=== PATIENT | male | born 1960 | race Caucasian/White ===

== ENCOUNTER 2021-02-21 12:13 | Outpatient (CLI) | payer OTHER, SELFPAY ==
[2021-02-21 12:58] VITALS: BMI 29.9
--- NOTE | 2021-02-21 13:01 | ECG_ITS ---
[facility] Test Date: 2021-02-21 Pat Name: Cruz Wells Department: Room: Gender: Male Systems Designer: : 1960 Requested By: Madison Yanez Order Number: [id number] oJann MD: Ivonne Mcbride M.D. Interpretive Statements NAME OF STUDY: TREADMILL STRESS TEST INDICATION: Chest Pain Baseline blood pressure of 132/88 mm Hg, heart rate of 89 beats per minute and oxygen saturation 94%. EKG showed normal sinus rhythm, normal axis with normal ST-Ts. The patient exercised for 7 minutes 25 seconds on a standard Gagandeep protocol. Patient attained a maximum heart rate of 144 beats per minute(89% of the maximum predicted heart rate) with a blood pressure at the peak exercise of 190/86 mm Hg and oxygen saturation 96%. The EKG at the peak exercise revealed sinus tachycardia with no significant ST-T wave changes. Patient did not have any chest pain or any significant arrhythmis with the exercise During the recovery phase, there were no new changes. Blood pressure at the end of the recovery phase was 133/92 mm Hg with a heart rate of 91 beats per minute oxygen saturation 96%. CONCLUSION: 1. Normal EKG response to treadmill exercise. 2. No exercise-induced chest pain or cardiac arrhythmia 3. Excellent exercise tolerance, attained a maximum of 10.2 METs. Maximum VO2 of 35.7 mL/kg/min. 4. Baseline normal blood pressure with normal response to exercise. Electronically Signed On 03-01-2021 12:05:25 CDT by Ivonne Mcbride M.D. [id number]
[2021-02-21 13:34] VITALS: BP 133/92; PULSE 92
== END 2021-02-21 12:14 | disposition home or self-care (01) ==
LOC: CDL 12:15
PROVIDERS: Visit Provider Nurse Practitioner Family
DX: R07.9 Chest pain, unspecified (principal)
CPT/HCPCS: 93017

== ENCOUNTER → 2021-04-12 15:36 | Outpatient (BNVA) | payer OTHER, SELFPAY | PROVIDERS: Referring Provider Nurse Practitioner Family; Visit Provider Specialist | DX: M25.512 Pain in left shoulder (principal) | CPT/HCPCS: 73030 ==

== ENCOUNTER 2022-02-13 06:00 | Outpatient (RCR) | payer OTHER, SELFPAY | END 2022-03-10 23:59 | disposition home or self-care (01) | LOC: WPT 06:00 | PROVIDERS: Referring Provider Nurse Practitioner Family; Visit Provider Nurse Practitioner Family | DX: M25.512 Pain in left shoulder (principal) | CPT/HCPCS: 97110; 97140; 97161; 97530 ==

== ENCOUNTER 2022-03-11 06:00 | Outpatient (RCR) | payer OTHER, SELFPAY | END 2022-03-28 23:00 | disposition home or self-care (01) | LOC: WPT 06:00 | PROVIDERS: Referring Provider Nurse Practitioner Family; Visit Provider Nurse Practitioner Family | DX: M25.512 Pain in left shoulder (principal) | CPT/HCPCS: 97110; 97530 ==

== ENCOUNTER 2022-03-15 11:10 | Oncology outpatient (recurring) (ONCR) | payer OTHER, SELFPAY ==
[2022-03-15 12:18] LABS: Basophils % 0.5 %; Eosinophils # 0.1 10^3/uL (0.0-0.8); Eosinophils % 1.1 %; Hematocrit 47.8 % (42.0-52.0); Hemoglobin 15.5 g/dL (11.7-16.6); Lymphocytes % 16.8 %; Mean Corpuscular HGB Conc 32.4 g/dL (30.0-36.0); Mean Corpuscular Volume 92.5 fl (80-94); Mean Platelet Volume 11.4 fL (7.4-10.4); Monocytes # 0.5 10^3/uL (0.2-0.9); Monocytes % 8.6 %; Neutrophils # 4.15 10^3/uL (1.8-7.7); Neutrophils % 72.6 %; Nucleated Red Blood Cells % 0 %; Platelet Count 167 10^3/cmm (130-400); Red Blood Count 5.17 10^6/uL (4.1-5.3); Red Cell Distribution Width 12.2 % (12.1-15.1); White Blood Count 5.7 10^3/uL (4.0-10.0)
[2022-03-15 12:35] LABS: Alanine Aminotransferase 29 U/L (0-41); Albumin Level 4.1 g/dL (3.5-5.2); Alkaline Phosphatase 64 IU/L (40-130); Anion Gap 14.4 (5-19); Aspartate Amino Transferase 23 U/L (0-40); Blood Urea Nitrogen 14 mg/dL (8-23); Calcium 10.6 mg/dL (8.5-10.5); Carbon Dioxide 26 mmol/L (22-29); Chloride 103 mmol/L (98-107); Glucose 106 mg/dL (65-115); Osmolality Calculated 289 mOsm/kg (285-295); Potassium 4.4 mmol/L (3.5-5.1); Sodium 139 mmol/L (136-145); Total Bilirubin 0.3 mg/dL (0.15-1.2); Total Protein 7.1 g/dL (6.6-8.7)
== END 2022-04-10 23:59 | disposition home or self-care (01) ==
PROVIDERS: Visit Provider Internal Medicine Hematology & Oncology
DX: D69.6 Thrombocytopenia, unspecified (principal); E83.52 Hypercalcemia; Z79.899 Other long term (current) drug therapy; Z53.9 Procedure and treatment not carried out, unspecified reason
CPT/HCPCS: 80053; 85025

== ENCOUNTER → 2022-05-11 08:40 | Outpatient (BNVA) | payer OTHER, SELFPAY | PROVIDERS: PCP Nurse Practitioner Family; Visit Provider Urology | DX: N20.0 Calculus of kidney (principal); N28.89 Other specified disorders of kidney and ureter | CPT/HCPCS: 81003 ==

== ENCOUNTER → 2023-06-27 13:07 | Outpatient (BNVA) | payer BC, MEDICAID, SELFPAY | PROVIDERS: PCP Nurse Practitioner Family; Referring Provider Nurse Practitioner Family; Visit Provider Internal Medicine Cardiovascular Disease | DX: R07.9 Chest pain, unspecified (principal) | CPT/HCPCS: 93005 ==

== ENCOUNTER 2023-07-05 08:12 | Outpatient (CLI) | payer BC, MEDICAID, SELFPAY ==
--- NOTE | 2023-07-05 | ECG_ITS ---
[facility] Test Date: 2023-07-05 Pat Name: Cruz Wells Department: Room: Gender: Male Estimating Engineer: : 1960 Requested By: Lionel Cueto Order Number: [id number] Joann MD: Ivonne Mcbride M.D. Interpretive Statements NAME OF STUDY: LEXISCAN SESTAMIBI STRESS TEST INDICATION: Chest Pain; Shortness of Breath PROCEDURE: At the baseline, the blood pressure was 132/85 mmHg with a heart rate of 62 beats per min. The electrocardiogram showed sinus rhythm, normal axis with nonspecific T wave inversion in lead III. The Lexiscan was infused over a period of 20 seconds. A total of 0.4 milligrams of Lexiscan was infused. The stress phase was continued for a total of 5 minutes. Heart rate at the end of the stress phase was 77 beats/min with a blood pressure of 126 over 86 mm of Hg. The EKG at the peak infusion revealed no significant ST-T wave changes. Sestamibi was injected 20 seconds after the Lexiscan infusion. Blood pressure at the end of the recovery phase was 131 over 77 mmHg with a heart rate of 79 beats per minute. CONCLUSION: 1. No significant EKG changes with the LexiScan infusion. 2. No LexiScan induced chest pain or cardiac arrhythmia. 3. Normal blood pressure and heart rate response. 4. Sestamibi/sestamibi perfusion scan pending; see separate report. Electronically Signed On 07-08-2023 16:41:47 CDT by Ivonne Mcbride M.D. [id number]
--- NOTE | 2023-07-05 08:48 | NMCV_ITS ---
NM richa perf SPECT r/s* [id number] Cruz Wells Age: 63 Gender: M : 1960 Exam Date: 07/05/2023 09:57 Ordering Phys: Lionel Cueto MD ([email or web address]) Technologist: LUANN Pickard Exam Location: [facility] Indications: CHEST PAIN STRESS TEST Please see separate stress test report in [facility] for full findings IMAGE PROTOCOL Rest/Stress 1 Lexiscan Day Radiopharmaceutical Dose (mCi) Administration Site Administered by Rest: Tc-99m 10.6 IV Albert Echavarria, KIER BOILER Sestamibi Stress:Tc-99m 32.6 IV Albert Echavarria, KIER BOILER Sestamibi Rest: 05-Jul-2023 60 Discovery 630 Stress: 05-Jul-2023 30 Discovery 630 0.4mg Lexiscan. Supine position only as patient was unable to lay prone. SPECT RESULTS Technical Quality: Excellent Raw Data Analysis: Normal Image Corrections: No attenuation or motion correction applied Summed Stress Score: 5 Summed Rest Score: 7 Summed Difference Score: 0 PERFUSION FINDINGS Moderate area of moderately decreased tracer uptake involving the basal, mid and apical inferior, mid inferolateral segments with no significant reversibility. FUNCTIONAL RESULTS (calculated via Gated SPECT) Stress Image LV EF (%): 59 Stress EDV (mL):95 TID: 1.43 Stress ESV (mL):39 FUNCTIONAL FINDINGS: Segmental wall motion analysis revealing no gross wall motion abnormalities IMPRESSIONS 1. Myocardial perfusion imaging revealing moderate area of persistent decreased tracer uptake involving the inferior and inferolateral regions suggesting myocardial scarring versus attrition artifact 2. Normal LV ejection fraction of 59%. 3. LV wall motion analysis revealing no gross wall motion abnormalities. 4. Normal LV volume Elevated transient ischemic dilatation ratio 1.43 may suggest endocardial ischemia. However the positive predictive value of this finding is limited. Clinical correlation is recommended. No similar previous studies are available for comparison Dr Asael Scott MD FAC (Electronically Signed) Final Date: 05 July 2023 16:29 S
[2023-07-05 09:33] VITALS: BMI 29.0
[2023-07-05] MEDS: regadenoson 0.4 Mg/5 ml Syringe IVP (10:35)
[2023-07-05 11:01] VITALS: BP 131/77; PULSE 78
== END 2023-07-05 08:13 | disposition home or self-care (01) ==
LOC: CDL 08:15
PROVIDERS: PCP Nurse Practitioner Family; Visit Provider Internal Medicine Cardiovascular Disease
DX: R07.9 Chest pain, unspecified (principal)
CPT/HCPCS: 36415; 78452; 93017; 96374; A9500; J2785

== ENCOUNTER → 2023-08-08 08:05 | Outpatient (BNVA) | payer BC, MEDICAID, SELFPAY | PROVIDERS: PCP Nurse Practitioner Family; Visit Provider Internal Medicine Cardiovascular Disease | DX: I10 Essential (primary) hypertension (principal); R07.9 Chest pain, unspecified | CPT/HCPCS: 80048; 85025; 85610 ==

== ENCOUNTER 2023-08-12 05:25 | Outpatient (CLI) | payer BC, MEDICAID, SELFPAY ==
[2023-08-12] VITALS (16 sets, daily range): BP systolic 102–145; BP diastolic 56–97; PULSE 57–76; RESP 6–20; TEMP 36.6; O2SAT 95–99; BMI 29.0
[2023-08-12] MEDS: diphenhydrAMINE 50 mg Capsule PO (06:45)
[2023-08-12] MEDS: aspirin 325 mg Tablet PO (06:45)
--- NOTE | 2023-08-12 07:30 | XACV_ITS ---
Ht: 185 cm Wt: 100 kg BSA: 2.29 m2 Gender: Male : 1960 Any Known Allergies: Other Exam Priority: Routine Indication(s): - Chest Pain in spite of Medical Tx - Abnormal stress perfusion study Procedure(s): Procedure Description: Diagnostic procedure Procedure Description: Left Heart Catheterization Procedure Description: Left ventriculography Procedure Description: Coronary Angiography Nory ERNST; Diagnostic Cath Status: Elective Diagnostic Findings * Atypical constant chest pain with normal coronary arteries and mildly abnormal stress testing. Despite medical therapy and abnormal stress test patient continues to have chest pain. Angiography recommended. Procedure was completed via the right radial artery. * Coronary angiography reveals right coronary artery dominance. The left main bifurcates into the LAD and circumflex. The left main, LAD and circumflex are normal. The right coronary artery is the dominant vessel. There are no obstructions. Conclusions 1. Normal coronary arteries. Normal left ventriculography. Recommendations * None. Interventional RX Recommendation: none Diagnostic RX Recommendation: none Anticoagulation: Heparin Ventriculography Ejection Fraction: 60.0 % Pressures Phase:Rest AO : / ( 0 ) @ 9:18:00 AM 101 / 80 ( 82 ) @ 9:27:00 AM 93 / 74 ( 83 ) @ 9:28:00 AM 120 / 75 ( 97 ) @ 9:36:00 AM 121 / 76 ( 97 ) @ 9:36:00 AM LV : 136 / -4 / 15 @ 9:34:00 AM 124 / -5 / 11 @ 9:36:00 AM 128 / -5 / 11 @ 9:36:00 AM Valves Phase:DefaultPhase AV : 4.0 @ 8:45:10 AM AV Mean Gradient: 17.0 @ 8:45:10 AM Clinical Evaluation EBL: 5mL-10mL Procedural Details Procedure Consent Obtained. Admit Source: Out Patient. Current Diagnosis : Chest Pain. Pre-Procedure Time Out. Identified patient by full name and date of as verbalized by the patient/guarantor. Does the consent match the physician's order: Yes. Accurate & Complete Informed Consent: Yes. Inpatient/Outpatient History & Physical on Chart: Yes. If H&P is completed, is and addenduem needed: No; If yes, is the addendum complete: N/A. Visualize and Verify Site with Patient/Guarantor: N/A. Relevant Radiology Images available: N/A. The risks, benefits, and alternatives of sedation and/or procedure were discussed by physician. The patient agrees to continue. Procedure started. [facility] Clinical Fraility Score: 3: Managing Well. Chest Pain Symptom Assessment: Atypical Angina. Cardiovascular Instability: No, stable. Correct patient, site and procedure confirmed by cath team. Current diagnosis: Chest Pain. PERRLA. Strong, equal hand traffic coordinator bilaterally. Lungs clear x 5 lobes. IV Site on Arrival: 20 gauge in the right anticubital. IV Fluids: 0.9% NaCl at KVO. 0 mL infused prior to section laborer. Pre Procedural Pulses: bilateral dorsalis pedis was 3+. Pre Procedural Pulses: bilateral posterior tibial was 3+. Pre Procedural Pulses: bilateral radial was 3+. Oxygen started at 3liters/min via nasal canula. bilateral groins was prepped with chloroprep then draped in the usual sterile fashion. right radial was prepped with chloroprep then draped in the usual sterile fashion. Physician notified. Baseline sample Acquired. HR: 52 BPM. Family updated by MD prior to the start of the procedure. Physician arrived. Physician scrubbed in. Immediate Pre-Procedure Time Out. Correct Patient: Yes; Correct Procedure: Yes; Correct Site: Yes; Correct Patient Position: Yes; Correct Supplies: Yes; Dried Flammable Prep: Yes; Blood Products Available: N/A;. Lidocaine 1% infiltrated to the right radial. Arterial access obtained. A 5 macedonian TIG catheter in over wire. Multiple views taken of left coronary artery. Catheter redirected to the RCA. Multiple views taken of right coronary artery. Catheter removed over the wire. A 5 macedonian Angled Pig catheter in over wire. EDP Sample taken: LV 136/-5,15; HR: 67 BPM; SpO2: 99%. LV gram performed in APONTE @ 10 mL/second for a total of 30 mL. Patient EF: Normal. EDP Sample taken: LV 124/-6,11; HR: 67 BPM; SpO2: 98%. Pullback taken: LV 128/-6,11; AO 120/75(97); Mean: 17mmHg, Peak to Peak: 4mmHg, SEP: 6sec/min; HR: 64 BPM; SpO2: 98%. Physician review of films. Physician scrubbed out. A TR Band was successful obtaining hemostatsis at the Right Radial artery insertion site. TR band placed. Hemostasis obtained. Post Procedure: Pulses reassessed and unchanged. PERRLA. Strong, equal hand traffic coordinator bilaterally. No VTE prophylaxis required. Medication waste: Lidocaine- 2 ml, Nitro- 49.8 mg, Heparin- 1000 units, Versed- 1 mg, Fentanyl- 75 mcg. Total IV fluids: 35 mL. Fluoro: 2:01. Contrast type used: Omnipaque 300 mg/mL, 150 mL bottle. [id number]. Post-op diagnosis: Normal Coronary Arteries. Complications: None. Estimated blood loss: 5mL-10mL. Responsiveness - Normal response to verbal stimuli; alert and oriented, PERRLA. Airway - Unaffected, no intervention required; spontaneous ventilation. Circulation: W/N/L, pulses unchanged. Nausea/Vomiting: No. Procedure completed. Patient transferred by wheelchair to CPRU. Vital chart was stopped. Access Site Site: Right Radial artery Sheath Size: 6 Fr Hemostasis Method: TR Band Hemostasis Success: Successful Procedure Medications Start: 8:24 AM Stop: 8:24 AM Medication: Versed 1 mg and Fentanyl 25 mcg Amount: 1 Route: I.V. Start: 8:25 AM Stop: 8:25 AM Medication: Nitrogylcerin Amount: 200 mcg Route: I.A. Start: 8:25 AM Stop: 8:25 AM Medication: Heparin Amount: 5000 units Route: I.V. I, the attending physician, have reviewed and verified all procedure medications. Yes, all medications given per verbal order History/Risk Factors Hypertension: Yes Dyslipidemia: Yes Peripheral Arterial Disease (PAD): No Myocardial Infarction (AR): No Obesity: No Renal Disease: No Tobacco Use: Current/Recent(w/in 1 year) Prior Interventions PCI: No CABG: No Valve Surgery: No Report Signatures Finalized by Dr. Lionel Cueto MD on 08/12/2023 08:53 AM
--- NOTE | 2023-08-12 08:06 | P.HP_ITS ---
Providers/Chief Complaint Admitting Physician: mary Primary Care Provider: Margaux Barron NP Chief Complaint: I20.0 History of Present Illness Cruz Wells is a 63 year old male who is being admitted today for elective coronary angiography. I saw him originally in consultation on 27 June when he was sent in by the [facility] after having episodes of chest pain for 8 days. Upon his going to the clinic they obtained an EKG. I did not have a copy of the EKG. When he arrived at my office he was still having chest pain. An EKG was normal. I had no information about the visit at [facility]. Stress test here was normal 2 years ago. He has not been a smoker. He does have hypertension and dyslipidemia. His blood pressure was elevated when he went to the [facility]. I ordered a Lexiscan sestamibi. This revealed a fixed defect in the inferior and inferolateral region. It may have been an attenuation artifact. There was also mildly elevated 3 times daily ratio which was a nonspecific finding. Upon calling him with the results he was still having chest pain and requested coronary angiography. Review of Systems Narrative: Negative Medications/Allergies Home Medications Medication Instructions Recorded Confirmed Last Taken Type naproxen 500 mg tablet 500 mg PO BID PRN pain 03/15/22 08/12/23 08/12/23 03:30 History omeprazole 20 mg capsule,delayed 20 mg PO DAILY 05/11/22 08/12/23 08/11/23 History release amlodipine 5 mg tablet 5 mg PO DAILY 06/27/23 08/12/23 08/12/23 03:30 History gabapentin 300 mg capsule 300 mg PO TID 06/27/23 08/12/23 08/12/23 03:30 History meloxicam 15 mg tablet 15 mg PO DAILY 06/27/23 08/12/23 08/12/23 03:30 History nitroglycerin 0.4 mg sublingual 0.4 mg sublingual Q5M PRN chest 06/27/23 08/12/23 Unknown History tablet pain pravastatin 20 mg tablet 20 mg PO DAILY 06/27/23 08/12/23 08/12/23 03:30 History Allergies Allergy/AdvReac Type Severity Reaction Status Date / Time tetanus and diphtheria AdvReac Unknown Verified 06/27/23 09:30 toxoids PFSH Acute PFSH: Medical History (Updated 06/27/23 @ 13:31 by Lionel Cueto MD) Bilateral renal stones Chest pain Hypercholesteremia Hypertension Family History Grandfather CAD (coronary artery disease) Grandmother CAD (coronary artery disease) Father , AT AGE 85 Cancer Leukemia Mother , AT AGE 85 Dementia Diabetes Denies family history of Clotting disorder Hyperlipidemia Psychiatric illness Chronic kidney disease (CKD) Suicide Anesthesia complication Bleeding disorder Lung disease Hypertension Stroke Social History Smoking and tobacco status: never smoked Second hand smoke exposure: No Alcohol intake: current Alcohol intake frequency: few times a month Marital status: Current occupational status: retired Vitals/I&O/Wt Last Vital Signs Temp 97.9 F 08/12/23 06:56 Pulse 70 08/12/23 06:56 Resp 18 08/12/23 06:56 BP 127/81 08/12/23 06:56 Pulse Ox 99 08/12/23 06:56 O2 Del Method Room Air 08/12/23 06:56 Weight last 48 hrs Weight 220 lb Physical Exam Narrative: GENERAL: In general he looks and feels well. HEENT: Exam within normal limits. NECK: Supple without jugular vein distention. The carotid upstroke is normal without bruits. BACK: Exam normal. LUNGS: Clear. HEART: Regular rate and rhythm. ABDOMEN: Benign without organomegaly or tenderness. EXTREMITIES: No edema. NEUROLOGIC: Exam normal. SKIN: Unremarkable. A&P Assessment and plan (1) Bilateral renal stones: (2) Renal scarring: (3) Chest pain: (4) Hypercholesteremia: (5) Hypertension: Plan Continued chest pain with minimally abnormal stress testing. Coronary angiography today. Attestations Medical Necessity Statement*: Outpatient in a bed. and Moderate Time for a total of 25 minutes, includes reviewing past or interval history, examining/interviewing patient, placing orders, counseling patient/family/other support, updating patient/family/other support, discussing plan of care with staff, communicating with other healthcare providers, documenting encounter and coordinating care Diagnoses Bilateral renal stones N20.0 Renal scarring N28.89 Chest pain R07.9 Hypercholesteremia E78.00 Hypertension I10
--- NOTE | 2023-08-12 10:03 | PM.DCS ---
Discharge Providers Date of Admission: 08/12/2023 Date of Discharge: August 12, 2023 Attending Provider at Admission: mary Attending Provider at Discharge: Lionel Cueto MD Primary Care Provider: Margaux Barron NP Diagnoses at Discharge Discharge Diagnosis (1) Bilateral renal stones: Status: Acute (2) Renal scarring: Status: Acute (3) Chest pain: Status: Acute (4) Hypercholesteremia: Status: Acute (5) Hypertension: Status: Acute Reason for Visit Reason for Visit: I20.0 Brief History: Patient was seen in the office about 2 months ago complaining of continuous chest pain. EKGs were normal. Stress testing revealed a fixed defect in the inferior and inferolateral regions without any significant ischemia. The 3 times daily ratio was mildly elevated. Patient continued to have chest discomfort and requested coronary angiography. Hospital Course Hospital Course Angiography was performed from the right radial artery. Coronary arteries were normal. Left ventriculography was normal. There were no complications. At the time of discharge the right wrist was flat, dry without hematoma, bleeding or other vascular anomaly. Physical Exam Narrative: GENERAL: Generally looks and feels well HEENT: Exam within normal limits. NECK: Supple without jugular vein distention. The carotid upstroke is normal without bruits. BACK: Exam normal. LUNGS: Clear. HEART: Regular rate and rhythm. ABDOMEN: Benign without organomegaly or tenderness. EXTREMITIES: No edema. The right radial artery entry site is flat, dry without bleeding, hematoma, swelling or other vascular anomaly. Good distal pulse. NEUROLOGIC: Exam normal. SKIN: Unremarkable. Discharge Data Studies Completed and Pending Completed Studies During Hospitalization Category Date Time Status MEDICAL REFERRAL COORDINATOR request for service Routine Exams 08/12/23 07:30 Completed Procedures Performed Left heart catheterization, coronary angiography, left ventriculography. Vitals Last Vital Signs Temp 97.9 F 08/12/23 06:56 Pulse 67 08/12/23 09:30 Resp 12 08/12/23 09:30 BP 113/79 08/12/23 09:30 Pulse Ox 97 08/12/23 09:30 O2 Del Method Room Air 08/12/23 09:30 Discharge Plan Discharge Patient Disposition: Home Prescriptions: Continued naproxen 500 mg tablet 500 mg PO BID PRN (Reason: pain) omeprazole 20 mg capsule,delayed release(DR/EC) 20 mg PO DAILY amlodipine 5 mg tablet 5 mg PO DAILY gabapentin 300 mg capsule 300 mg PO TID pravastatin 20 mg tablet 20 mg PO DAILY meloxicam 15 mg tablet 15 mg PO DAILY nitroglycerin 0.4 mg tablet, sublingual 0.4 mg sublingual Q5M PRN (Reason: chest pain) Discharge Orders: Discharge Order (Routine); Ordered 08/12/23 Ordered By: Lionel Cueto Referrals: Betty Narvaez, STORAGE AND BACKUP ADMINISTRATOR [Nurse Practitioner] - 7-10 days (Check right radial artery entry site and chemistry panel. No cardiology follow-up necessary after this visit.) Diet: Regular Activity: Increase activity as tolerated and Limit activity as instructed Activity Restrictions/Additional Instructions: No lifting over 5 pounds with the right arm for 2 days. Notify us for pain, bleeding swelling or other difficulties with the right arm. Discharge Attestations Time Spent in Discharge Care*: greater than 30 min Quality Metrics Clinical Quality Measures [ No reported AMI, CVA or VTE this stay] Coding Level of Care Code 47265 Total time (in minutes) for Discharge: 35 Diagnoses Bilateral renal stones N20.0 Renal scarring N28.89 Chest pain R07.9 Hypercholesteremia E78.00 Hypertension I10
--- NOTE | 2023-08-12 11:20 | PC.NURSE ---
TR Band Removal 0950 - 2ml air removed from right radial TR band. Site asymptomatic. No signs of bleeding or hematoma. Radial pulse palpable. 0956- 1 ml air removed from right radial TR band. Site asymptomatic. No signs of bleeding or hematoma. Radial pulse palpable. 1008 - 1 ml air removed from right radial TR band. Site asymptomatic. No signs of bleeding or hematoma. Radial pulse palpable. 1025 - 2ml air removed from right radial TR band. Site asymptomatic. No signs of bleeding or hematoma. Radial pulse palpable. 1036 - 2ml air removed from right radial TR band. Site asymptomatic. No signs of bleeding or hematoma. Radial pulse palpable. 1046 - 2ml air removed from right radial TR band. Site asymptomatic. No signs of bleeding or hematoma. Radial pulse palpable. 1100- 2ml air removed from right radial TR band. Site asymptomatic. No signs of bleeding or hematoma. Radial pulse palpable. TR band deflated, left in place to monitor for bleeding. 1120- No signs of bleeding or hematoma. Radial pulse palpable. Pt denies pain. Site covered with large clean bandaid.
--- NOTE | 2023-08-12 12:20 | PC.NURSE ---
Discharge Note Discharge instructions given to patient verbally and by handout. Pt verbalized understanding of instructions. Right radial site is asymptomatic. No signs of bleeding or hematoma. Denies pain. Pt escorted to private vehicle.
== END 2023-08-12 12:20 | disposition home or self-care (01) ==
PROVIDERS: PCP Nurse Practitioner Family; Visit Provider Internal Medicine Cardiovascular Disease
DX: R07.9 Chest pain, unspecified (principal); R94.39 Abnormal result of other cardiovascular function study; I10 Essential (primary) hypertension; E78.5 Hyperlipidemia, unspecified; N20.0 Calculus of kidney; N28.89 Other specified disorders of kidney and ureter; E78.00 Pure hypercholesterolemia, unspecified
CPT/HCPCS: 36415; 93458; 96365; 99152; 99153; C1769; C1887; C1894; J1644; J2250; J3010; J3490; J7030; Q0163; Q9967

== ENCOUNTER → 2024-03-17 08:03 | Outpatient (BNVA) | payer BC, MEDICAID, SELFPAY | PROVIDERS: PCP Nurse Practitioner Family; Visit Provider Internal Medicine Cardiovascular Disease | DX: I10 Essential (primary) hypertension (principal); E78.00 Pure hypercholesterolemia, unspecified; R07.9 Chest pain, unspecified | CPT/HCPCS: 80048; 83880; 85025 ==

== ENCOUNTER 2025-06-02 07:38 | Oncology outpatient (recurring) (ONCR) | payer BC, MEDICAID, SELFPAY ==
[2025-06-02 09:10] LABS: Hematocrit 45.4 % (37-53); Hemoglobin 15.20 g/dL (11.27-16.99); Mean Corpuscular HGB Conc 33.5 g/dL (30-55); Mean Corpuscular Hemoglobin 30.6 pg (27-33); Mean Corpuscular Volume 91.5 fl (82-101); Nucleated Red Blood Cells % 0 %; Platelet Count 150 10^3/cmm (157-399); Red Blood Count 4.96 10^6/uL (3.85-5.65); White Blood Count 7.66 10^3/uL (3.29-11.43)
[2025-06-02 09:36] LABS: Alanine Aminotransferase 13 U/L (0-41); Albumin Level 4.4 g/dL (3.5-5.2); Alkaline Phosphatase 68 U/L (40-130); Anion Gap 15.4 (5-19); Aspartate Amino Transferase 13 U/L (0-40); Blood Urea Nitrogen 15 mg/dL (8-23); Calcium 10.0 mg/dL (8.5-10.5); Carbon Dioxide 25 mmol/L (22-29); Chloride 105 mmol/L (98-107); Creatinine Clr Calc Pharmacy 98.7850; Globulin 2.6 g/dL (1.3-4.6); Glucose 120 mg/dL (65-115); Osmolality Calculated 294 mOsm/kg (285-295); Potassium 4.4 mmol/L (3.5-5.1); Sodium 141 mmol/L (136-145); Total Protein 7.0 g/dL (6.6-8.7); Uric Acid 5.9 mg/dL (3.4-7.0)
[2025-06-02 09:52] LABS: Vitamin B12 155 pg/mL (232-1245)
[2025-06-03 05:39] LABS: PROTEIN, TOTAL 6.7 g/dL (6.1-8.1)
[2025-06-03 19:19] LABS: ALPHA 1 GLOBULIN 0.3 g/dL (0.2-0.3); ALPHA 2 GLOBULIN 0.7 g/dL (0.5-0.9); BETA 1 GLOBULIN 0.4 g/dL (0.4-0.6); BETA 2 GLOBULIN 0.3 g/dL (0.2-0.5)
== END 2025-06-02 23:59 | disposition home or self-care (01) ==
PROVIDERS: PCP Nurse Practitioner Family; Visit Provider Internal Medicine
DX: D69.6 Thrombocytopenia, unspecified (principal); D72.819 Decreased white blood cell count, unspecified; M47.894 Other spondylosis, thoracic region
CPT/HCPCS: 36415; 71046; 80053; 82607; 82746; 83615; 84155; 84165; 84550; 85025; 85651; 86334

== ENCOUNTER 2025-07-07 10:45 | Oncology outpatient (recurring) (ONCR) | payer BC, MEDICAID, SELFPAY ==
--- NOTE | 2025-06-16 08:00 | US_ITS ---
WS: [id number] Complete ABDOMINAL ULTRASOUND HISTORY: thrombocytompenia COMPARISON: 03/08/2022 Liver: 16.6 cm in length. Normal size liver and echogenicity. No bile duct dilatation or mass. Portal Vein: Normal hepatopetal flow with monophasic waveform. Gallbladder: Normally distended gallbladder with no stones or wall thickening. CBD: 0.4 cm Pancreas: Not visualized. Right kidney: 10.9 cm x 4.7 x 4.8 cm. Cortex:1.1 cm. Normal size and echogenicity. Simple cyst superior pole measures 3.2 x 2.9 x 3.3 cm. No solid mass. No obstruction. Left kidney: 11.2 cm x 4.6 cm x 4.7 cm. Cortex: 1.1 cm. Normal size and echogenicity. No hydronephrosis or mass. Spleen: 13.6 cm. Spleen is measuring top normal size. Echogenicity is homogeneous. Similar size spleen on 03/08/2022. Aorta and IVC: Unremarkable abdominal aorta and IVC. US/US abdomen complete* [id number] Impression: 1. Normal gallbladder. 2. RIGHT renal cyst superior pole, 3.2 x 2.9 x 3.3 cm. Minimal increase in siz e since the prior ultrasound. 3. Spleen is measuring top normal size at 13.6 cm. No change since 03/08/2022. 4. No ascites.
== END 2025-07-11 23:59 | disposition home or self-care (01) ==
PROVIDERS: PCP Nurse Practitioner Family; Visit Provider Internal Medicine
DX: D69.6 Thrombocytopenia, unspecified (principal); D72.819 Decreased white blood cell count, unspecified; N28.1 Cyst of kidney, acquired
CPT/HCPCS: 76700

== ENCOUNTER 2025-07-15 10:30 | Oncology outpatient (recurring) (ONCR) | payer BC, MEDICAID, SELFPAY ==
[2025-07-15 11:22] LABS: Hematocrit 42.8 % (37-53); Hemoglobin 14.50 g/dL (11.27-16.99); Mean Corpuscular HGB Conc 33.9 g/dL (30-55); Mean Corpuscular Hemoglobin 30.8 pg (27-33); Mean Corpuscular Volume 90.9 fl (82-101); Nucleated Red Blood Cells % 0 %; Platelet Count 131 10^3/cmm (157-399); Red Blood Count 4.71 10^6/uL (3.85-5.65); White Blood Count 3.86 10^3/uL (3.29-11.43)
[2025-07-15 11:40] LABS: Alanine Aminotransferase 12 U/L (0-41); Albumin Level 4.3 g/dL (3.5-5.2); Alkaline Phosphatase 61 U/L (40-130); Anion Gap 14.2 (5-19); Aspartate Amino Transferase 13 U/L (0-40); Blood Urea Nitrogen 11 mg/dL (8-23); Calcium 9.5 mg/dL (8.5-10.5); Carbon Dioxide 25 mmol/L (22-29); Chloride 106 mmol/L (98-107); Creatinine Clr Calc Pharmacy 99.6365; Globulin 2.5 g/dL (1.3-4.6); Glucose 110 mg/dL (65-115); Osmolality Calculated 292 mOsm/kg (285-295); Potassium 4.2 mmol/L (3.5-5.1); Sodium 141 mmol/L (136-145); Total Protein 6.8 g/dL (6.6-8.7); Uric Acid 4.9 mg/dL (3.4-7.0)
[2025-07-15 11:55] LABS: Vitamin B12 161 pg/mL (232-1245)
[2025-07-16 06:09] LABS: PROTEIN, TOTAL 6.5 g/dL (6.1-8.1)
[2025-07-16 18:14] LABS: ALPHA 1 GLOBULIN 0.2 g/dL (0.2-0.3); ALPHA 2 GLOBULIN 0.7 g/dL (0.5-0.9); BETA 1 GLOBULIN 0.4 g/dL (0.4-0.6); BETA 2 GLOBULIN 0.3 g/dL (0.2-0.5)
== END 2025-08-10 23:59 | disposition home or self-care (01) ==
PROVIDERS: PCP Nurse Practitioner Family; Visit Provider Internal Medicine
DX: D72.819 Decreased white blood cell count, unspecified (principal); D69.6 Thrombocytopenia, unspecified
CPT/HCPCS: 36415; 80053; 82607; 82746; 83615; 84155; 84165; 84550; 85025; 85651; 86334